=== PATIENT | male | born 1990 | race Two or more races ===

== ENCOUNTER → 2016-12-08 | Outpatient (CLI) | payer OTHER ==
[~2016-12-08] MED LIST: CLAR10CA3 PO; MUCI3TAB PO
== END ==
LOC: M WUC 12:34
PROVIDERS: ATTEND Physician Assistant
DX: R30.0 Dysuria (principal); Z72.51 High risk heterosexual behavior

== ENCOUNTER 2019-10-11 10:57 | Inpatient (IN) | payer MEDICAID, OTHER ==
[~2019-10-11] VITALS: Ht 175.3 cm; Wt 59.5 kg
[2019-10-11 13:04] LABS: HEMATOCRIT 45.3 % (42.0-52.0); HEMOGLOBIN 15.5 g/dl (13.5-17.5); MEAN CORPUSCULAR HEMOGLOBIN 27.8 pg (27.0-33.0); MEAN CORPUSCULAR HGB CONC 34.2 g/dl (32.0-36.5); MEAN CORPUSCULAR VOLUME 81.2 fl (80.0-96.0); PLATELET COUNT, AUTOMATED 297 10^3/uL (150-450); RED BLOOD COUNT 5.58 10^6/uL (4.30-6.10); WHITE BLOOD COUNT 18.9 10^3/uL (4.0-10.0)
[2019-10-11 13:31] LABS: AMPHETAMINES LEVEL URINE NEGATIVE (NEGATIVE); BARBITURATES URINE NEGATIVE (NEGATIVE); BENZODIAZEPINES URINE NEGATIVE (NEGATIVE); CANNABINOIDS URINE POSITIVE (NEGATIVE); COCAINE METABOLITE URINE NEGATIVE (NEGATIVE); METHADONE URINE NEGATIVE (NEGATIVE); OPIATES URINE NEGATIVE (NEGATIVE); PHENCYCLIDINE URINE NEGATIVE (NEGATIVE)
[2019-10-11 13:43] LABS: ALT/SGPT 38 U/L (12-78); BILIRUBIN,DIRECT 0.2 MG/DL (0.0-0.2); BILIRUBIN,TOTAL 0.5 MG/DL (0.2-1.0); BLOOD UREA NITROGEN 13 MG/DL (7-18); CALCIUM LEVEL 10.1 MG/DL (8.5-10.1); CARBON DIOXIDE LEVEL 27 MEQ/L (21-32); CHLORIDE LEVEL 108 MEQ/L (98-107); CREATININE FOR GFR 1.15 MG/DL (0.70-1.30); ETHYL ALCOHOL (ETHANOL) 0.003 % (0.000-0.010); GLOMERULAR FILTRATION RATE > 60.0 (>60); GLUCOSE, FASTING 83 MG/DL (70-100); POTASSIUM SERUM 3.7 MEQ/L (3.5-5.1); SALICYLATE LEVEL 5.2 MG/DL (5.0-30.0); SODIUM LEVEL 143 MEQ/L (136-145); TOTAL PROTEIN 8.7 GM/DL (6.4-8.2)
[2019-10-11 13:44] LABS: ACETAMINOPHEN LEVEL < 2.0 UG/ML (10.0-30.0)
[2019-10-11] MEDS ORDERED: ACETAMINOPHEN TAB 650MG DOSE (2X325MG) PO ONE (14:00)
--- NOTE | 2019-10-11 16:40 | REP ---
RIGHT RIB SERIES: Four views right ribs performed. No acute fracture or bone lesion is seen. An accompanying PA view of the chest demonstrates no acute infiltrate, pneumothorax, or pleural effusion. Heart and mediastinum are within normal limits. IMPRESSION: Negative right rib series. Electronically Signed by Efrain Fuchs MD 10/12/2019 01:15 P
[2019-10-11] MEDS ORDERED: ACETAMINOPHEN TAB 650MG DOSE (2X325MG) PO PRN (19:15)
[2019-10-11] MEDS ORDERED: MAALOX 30 ML SUSP *UDC PO PRN (19:15)
[2019-10-11] MEDS ORDERED: MOM 30ML SUSPENSION UDC PO PRN (19:15)
[2019-10-11] MEDS ORDERED: traZODone 50 MG TAB PO PRN (19:15)
[2019-10-12 00:47] VITALS: BP 140/87
[2019-10-12 06:48] VITALS: BP 131/75
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
[2019-10-12 10:17] LABS: HEPATITIS B SURFACE ANTIBODY POSITIVE (POSITIVE); HEPATITIS B SURFACE ANTIGEN NEGATIVE (NEGATIVE); HEPATITIS C VIRUS ABY INDEX 0.2 INDEX (<0.8); HIV 1&2 SCREEN CENTAUR NEGATIVE (NEGATIVE)
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
[2019-10-12 16:09] VITALS: BP 115/70
[2019-10-13 06:25] VITALS: BP 120/72
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
[2019-10-13 16:24] VITALS: BP 117/64
[2019-10-14 06:26] VITALS: BP 134/58
[2019-10-14 16:13] VITALS: BP 135/80
[2019-10-15 06:32] VITALS: BP 119/59
--- NOTE | 2019-10-15 09:30 | MHIPN ---
DATE: 10/14/2019 VITAL SIGNS: Blood pressure 155/80, pulse 69, temperature 98.5. This is a followup assessment, made by a telemedicine video. He is seen the presence of staff. CHIEF COMPLAINT: Feels good. SUBJECTIVE: Seen for followup. Indicates feels better, in that he feels rested. He says his appetite has been good. No cravings for cannabis, he denies any. Says plans to see a counselor for him staying away from cannabis. MENTAL STATUS EXAMINATION: He is cooperative. No agitation. No psychomotor retardation. Coherent. Affect displays a fair range. Denies any thoughts of harming himself or anyone else. I see no evidence of any psychosis. Cognition grossly intact. Judgment and insight improved overall. ASSESSMENT: 1. Adjustment disorder with anxiety and depression. 2. Cannabis use disorder. Clinically improved. PLAN: Continue current care, observation. He wishes to remain off antidepressants and I think that is quite acceptable. Should such improvement continue, anticipate discharge soon. Further recommendations will be made depending on the clinical picture.
[2019-10-15 16:00] VITALS: BP_SYST 118; BP_SYST 170; BP_DIAS 75; BP_DIAS 76
--- NOTE | 2019-10-15 20:39 | MHIPNPDOC ---
[facility] Progress Note Progress Note DATE OF SERVICE: 10/15/19 Gunnar now 29 years of age has been on the inpatient psychiatric unit since his admission on October 10 He was seen today for medical psychotherapy Patient was seen for a medical psychotherapy session in which the patient's treatment plan was reviewed, mental status exam performed, vital signs reviewed, current medical conditions reviewed, and treatment goals were reviewed This visit was performed as a telehealth visit utilizing an interactive a/v telecommunications system or telephone that permitted real time communication between myself and the patient--permission/consent from patient/guardian was obtained MENTAL STATUS EXAM Level of consciousness--patient was alert and oriented to time place person Appearance-normal posture, normal dress, no prominent physical abnormalities, alert, cooperative Behavior--like to good, no psychomotor agitation or retardation, no abnormal movements, no tremor Speech--normal rate and rhythm--normal volume Mood--euthymic Affect--normal range and consistent with mood--stable Thought processes--logical and linear , goal directed and coherent--no thought blocking or flight of ideas, no loose associations, no tangential thinking, no word salad, no thought blocking, no circumstantiality Thought content--no ideas of reference no auditory or visual hallucinations, no delusional thinking, no thoughts of derealization or depersonalization, no obsessive thinking, no expressed phobias, Cognition--patient was alert and able to focus-sustained appropriate mental attention-memory immediate and short-term memory intact-abstract thinking pr esent, Insight---fair Judgment or the ability to anticipate consequences of behavior intact Patient denied any suicidal ideation or impulses Patient denied any homicidal impulses or ideation He is making slow with a progress since being admitted and his mental status is now considerably improved and is back to normal and/or his baseline Aftercare has been arranged and he will be ready to be discharged tomorrow Currently he is on no psychotropic medication Vital Signs Vital Signs Date Time Temp Pulse Resp B/P (MAP) Pulse Ox O2 Delivery O2 Flow Rate FiO2 10/15/19 16:00 97.6 59 16 118/76 (90) 10/15/19 06:32 98 Room Air Current Medications Current Medications Medications (Trade) Dose Ordered Sig/Olivier Route PRN Reason Start Time Stop Time Status Last Admin Dose Admin Acetaminophen (Tylenol Tab) 650 mg Q6HP PRN PO HEADACHE or DISCOMFORT 10/11/19 19:15 Al Hydrox/Mg Hydrox/Simethicone (Mylanta) 30 ml Q4HP PRN PO HEARTBURN/INDIGESTION 10/11/19 19:15 Home Med (Med Rec Complete!) ASDIRECTED XX 10/11/19 18:30 10/11/19 18:28 DC Magnesium Hydroxide (Milk Of Magnesia) 30 ml DAILYPRN PRN PO CONSTIPATION 10/11/19 19:15 Trazodone HCl (Desyrel) 50 mg QHSP PRN PO INSOMNIA 10/11/19 19:15 Allergies Coded Allergies: Sulfa (Sulfonamide Antibiotics) (Verified Allergy, Intermediate, 10/11/19) Zi Devlin MD Oct 15, 2019 20:39
[2019-10-16 06:27] VITALS: BP 124/70
--- NOTE | 2019-10-16 13:54 | MHDSPDOC ---
[facility] Discharge Summary Discharge Summary Discharge summary Date of admission October 11, 2019 Date of discharge October 16, 2019 Quirino is a 29-year-old male who was admitted and treated on our inpatient adult psychiatric unit for a period of 5 days Final diagnosis unspecified depressive disorder Secondary final diagnosis was that of cannabis abuse No complications to his stay with regard to medical conditions Patient's clinical condition improved during the course of the stay and no psychotropic medications were employed Final mental status MENTAL STATUS EXAM Level of consciousness--patient was alert and oriented to time place person Appearance-normal posture, normal dress, no prominent physical abnormalities, alert, cooperative Behavior--like to good, no psychomotor agitation or retardation, no abnormal movements, no tremor Speech--normal rate and rhythm--normal volume Mood--euthymic Affect--normal range and consistent with mood--stable Thought processes--logical and linear , goal directed and coherent--no thought blocking or flight of ideas, no loose associations, no tangential thinking, no word salad, no thought blocking, no circumstantiality Thought content--no ideas of reference no auditory or visual hallucinations, no delusional thinking, no thoughts of derealization or depersonalization, no obsessive thinking, no expressed phobias, Cognition--patient was alert and able to focus-sustained appropriate mental attention-memory immediate and short-term memory intact-abstract thinking present, Insight---fair Judgment or the ability to anticipate consequences of behavior intact Patient denied any suicidal ideation or impulses Patient denied any homicidal impulses or ideation Aftercare was arranged Medications were reconciled A safety contract was constructed Emergency procedures were explained to the patient Patient was referred to the behavioral outpatient treatment here at [facility] Patient was also referred to substance abuse outpatient treatment again at [facility] 30 minutes was spent in the discharge process and with the patient Vital Signs/I&Os Vital Signs Date Time Temp Pulse Resp B/P (MAP) Pulse Ox O2 Delivery O2 Flow Rate FiO2 10/16/19 06:27 98.9 50 14 124/70 (88) 99 Room Air Allergies Coded Allergies: Sulfa (Sulfonamide Antibiotics) (Verified Allergy, Intermediate, 10/11/19) Zi Devlin MD Oct 16, 2019 13:54
== END 2019-10-16 16:02 | disposition home or self-care (01) | DRG 754 ==
LOC: M ED 10:57 → M ED INP 19:02 → M PSY 10-12 00:15
PROVIDERS: ADMIT Psychiatry & Neurology Psychiatry; ATTEND Psychiatry & Neurology Addiction Medicine
DX: F32.9 Major depressive disorder, single episode, unspecified (principal); R45.851 Suicidal ideations; F12.10 Cannabis abuse, uncomplicated

== ENCOUNTER 2020-01-12 22:17 | Inpatient (IN) | payer OTHER ==
[~2020-01-12] VITALS: Ht 175.3 cm; Wt 61.4 kg
[2020-01-12 23:10] LABS: HEMATOCRIT 39.9 % (42.0-52.0); HEMOGLOBIN 13.9 g/dl (13.5-17.5); MEAN CORPUSCULAR HEMOGLOBIN 28.3 pg (27.0-33.0); MEAN CORPUSCULAR HGB CONC 34.8 g/dl (32.0-36.5); MEAN CORPUSCULAR VOLUME 81.3 fl (80.0-96.0); PLATELET COUNT, AUTOMATED 255 10^3/uL (150-450); RED BLOOD COUNT 4.91 10^6/uL (4.30-6.10); WHITE BLOOD COUNT 11.9 10^3/uL (4.0-10.0)
[2020-01-12 23:39] LABS: AMPHETAMINES LEVEL URINE NEGATIVE (NEGATIVE); BARBITURATES URINE NEGATIVE (NEGATIVE); BENZODIAZEPINES URINE NEGATIVE (NEGATIVE); CANNABINOIDS URINE POSITIVE (NEGATIVE); COCAINE METABOLITE URINE NEGATIVE (NEGATIVE); METHADONE URINE NEGATIVE (NEGATIVE); OPIATES URINE NEGATIVE (NEGATIVE); PHENCYCLIDINE URINE NEGATIVE (NEGATIVE)
[2020-01-13 00:18] LABS: ACETAMINOPHEN LEVEL < 2.0 UG/ML (10.0-30.0); ALBUMIN 4.6 GM/DL (3.2-5.2); ALT/SGPT 22 U/L (12-78); BILIRUBIN,DIRECT 0.1 MG/DL (0.0-0.2); BILIRUBIN,TOTAL 0.4 MG/DL (0.2-1.0); BLOOD UREA NITROGEN 14 MG/DL (7-18); CALCIUM LEVEL 9.8 MG/DL (8.5-10.1); CARBON DIOXIDE LEVEL 26 MEQ/L (21-32); CHLORIDE LEVEL 108 MEQ/L (98-107); CREATININE FOR GFR 1.24 MG/DL (0.70-1.30); ETHYL ALCOHOL (ETHANOL) < 0.003 % (0.000-0.010); GLOMERULAR FILTRATION RATE > 60.0 (>60); GLUCOSE, FASTING 126 MG/DL (70-100); POTASSIUM SERUM 3.6 MEQ/L (3.5-5.1); SALICYLATE LEVEL 2.9 MG/DL (5.0-30.0); SODIUM LEVEL 140 MEQ/L (136-145); TOTAL PROTEIN 7.7 GM/DL (6.4-8.2)
[2020-01-13 00:40] LABS: CHLAMYDIA DNA AMPLIFICATION POSITIVE (NEGATIVE); GC DNA AMPLIFICATION NEGATIVE (NEGATIVE)
[2020-01-13] MEDS ORDERED: AZITHROMYCIN 250MG TABLET PO ONE ×2 (02:15→18:30)
[2020-01-13] MEDS ORDERED: OLANZapine ORAL DISINTEGRATING TAB 5MG PO PRN (02:30)
[2020-01-13] MEDS ORDERED: MAALOX 30 ML SUSP *UDC PO PRN (02:30)
[2020-01-13] MEDS ORDERED: MOM 30ML SUSPENSION UDC PO PRN (02:30)
[2020-01-13] MEDS ORDERED: traZODone 50 MG TAB PO PRN (02:30)
[2020-01-13] MEDS ORDERED: ACETAMINOPHEN TAB 650MG DOSE (2X325MG) PO PRN (02:30)
[2020-01-13] MEDS ORDERED: ONDANSETRON 4 MG ORAL DISINTEGRATING TAB PO ONE (03:00)
[2020-01-13 04:35] VITALS: BP 129/68
[2020-01-13 17:55] VITALS: BP 119/82
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
[2020-01-14 06:46] VITALS: BP 132/58
[2020-01-14 06:52] LABS: HEMATOCRIT 37.4 % (42.0-52.0); HEMOGLOBIN 13.1 g/dl (13.5-17.5); MEAN CORPUSCULAR HEMOGLOBIN 28.6 pg (27.0-33.0); MEAN CORPUSCULAR VOLUME 81.7 fl (80.0-96.0); PLATELET COUNT, AUTOMATED 227 10^3/uL (150-450); RED BLOOD COUNT 4.58 10^6/uL (4.30-6.10); WHITE BLOOD COUNT 6.6 10^3/uL (4.0-10.0)
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
[2020-01-14] MEDS ORDERED: AZITHROMYCIN 250MG TABLET PO ONE (10:15)
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
== END 2020-01-14 13:30 | disposition home or self-care (01) | DRG 755 ==
LOC: M ED 22:17 → M ED INP 01-13 02:22 → M PSY 01-13 04:16
PROVIDERS: ADMIT Psychiatry & Neurology Psychiatry; ATTEND Psychiatry & Neurology Addiction Medicine
DX: F43.24 Adjustment disorder with disturbance of conduct (principal); A56.8 Sexually transmitted chlamydial infection of other sites; F12.90 Cannabis use, unspecified, uncomplicated; Z88.1 Allergy status to other antibiotic agents; Z88.2 Allergy status to sulfonamides

== ENCOUNTER 2020-05-09 10:20 | Emergency (ER) | payer OTHER ==
[~2020-05-09] VITALS: Ht 175.3 cm; Wt 59.1 kg
--- OUTSIDE RECORDS SUMMARY | 2020-05-09 10:24 | CCD ---
Author Author [facility] Organization [facility] Address Unknown Phone Unavailable Support Name Relationship Address Phone JULIETA DEE Next Of Kin [address] [place] [address] ALBERT Next Of Kin [address] [place] [address] UE Next Of Kin Unknown Unavailable ST Next Of Kin Unknown Unavailable [place] [address] CHELLE DEE Next Of Kin [address] [place] [address] Re-disclosure Warning The records that you are about to access may contain information from federally-assisted alcohol or drug abuse programs. If such information is present, then the following federally mandated warning applies: This information has been disclosed to you from records protected by federal confidentiality rules (42 CFR part 2). The federal rules prohibit you from making any further disclosure of this information unless further disclosure is expressly permitted by the written consent of the person to whom it pertains or as otherwise permitted by 42 CFR part 2. A general authorization for the release of medical or other information is NOT sufficient for this purpose. The Federal rules restrict any use of the information to criminally investigate or prosecute any alcohol or drug abuse patient.The records that you are about to access may contain highly sensitive health information, the redisclosure of which is protected by Article 27-F of the [place] State Public Health law. If you continue you may have access to information: Regarding HIV / AIDS; Provided by facilities licensed or operated by the [facility] Office of Mental Health; or Provided by the [facility] Office for People With Developmental Disabilities. If such information is present, then the following [facility] mandated warning applies: This information has been disclosed to you from confidential records which are protected by state law. State law prohibits you from making any further disclosure of this information without the specific written consent of the person to whom it pertains, or as otherwise permitted by law. Any unauthorized further disclosure in violation of state law may result in a fine or nursing home sentence or both. A general authorization for the release of medical or other information is NOT sufficient authorization for further disc losure. Family History Family Member Name Family Member Gender Family Member Status Date o f Status Description Data Source(s) Unknown Male Problem MEDENT ([facility] Unknown Unknown Problem MEDENT ([facility], [facility]) Insurance Providers Payer name Policy type / Coverage type Policy ID Covered libertarian ID Covered libertarian's relationship to fonseca Policy Fonseca Plan Information [facility] [id number] SP [id number] [facility] [id number] SP [id number] [facility] O [id number] S [id number] [facility] [id number] SP [id number] [facility] [id number] SP [id number] [place] [id number] SP [id number] GEHA-ASA [id number] MO2 [id number] Geha-Asa Commercial [id number] Family Dependent [id number] Geha-Asa Commercial [id number] Family Dependent [id number] Asageha [employer] Commercial [id number] Family Dependent [id number] GEHA-ASA [id number] MO2 [id number] Geha-Asa Commercial Self PGBA [facility] [id number] MO2 [id number] Prime Commercial Family Dependent
[2020-05-09 10:46] LABS: HEMATOCRIT 39.7 % (42.0-52.0); HEMOGLOBIN 13.5 g/dl (13.5-17.5); MEAN CORPUSCULAR VOLUME 82.2 fl (80.0-96.0); PLATELET COUNT, AUTOMATED 243 10^3/uL (150-450); RED BLOOD COUNT 4.83 10^6/uL (4.30-6.10); WHITE BLOOD COUNT 5.6 10^3/uL (4.0-10.0)
--- OUTSIDE RECORDS SUMMARY | 2020-05-09 11:21 | CCD ---
Author Author [facility] Organization [facility] Address Unknown Phone Unavailable Support Name Relationship Address Phone JULIETA DEE Next Of Kin [address] [place] [address] ALBERT Next Of Kin [address] [place] [address] UE Next Of Kin Unknown Unavailable ST Next Of Kin Unknown Unavailable [place] [address] CHELLE DEE Next Of Kin [address] [place] [address] Re-disclosure Warning The records that you are [...] is protected by Article 27-F of the [place] State Public Health law. If you continue you may have access to information: Regarding HIV / AIDS; Provided by facilities licensed or operated by the [facility] Office of Mental Health; or Provided by the [facility] Office for People With Developmental Disabilities. If such information is present, then the following [facility] mandated warning applies: This information has been [...] [facility] Unknown Unknown Problem MEDENT ([facility], [facility]) Insurance Providers Payer name Policy type / Coverage type Policy ID Covered green party ID Covered green party's relationship to fonseca Policy Fonseca Plan Information [facility] [id number] SP [id number] [facility] [id number] SP [id number] [facility] O [id number] S [id number] [facility]O [id number] SP [id number] [facility] [id number] SP [id number] [place] [id number] SP [id number] GEHA-ASA [id number] MO2 [id number] Geha-Asa Commercial [id number] Family Dependent [id number] Geha-Asa Commercial [id number] Family Dependent [id number] Asageha [employer] Commercial [id number] Family Dependent [id number] GEHA-ASA [id number] MO2 [id number] Geha-Asa Commercial Self PGBA [facility] [id number] MO2 [id number] Prime Commercial Family Dependent
[2020-05-09 11:22] LABS: ACETAMINOPHEN LEVEL < 2.0 UG/ML (10.0-30.0); ALBUMIN 4.4 GM/DL (3.2-5.2); ALT/SGPT 60 U/L (12-78); BILIRUBIN,DIRECT 0.2 MG/DL (0.0-0.2); BILIRUBIN,TOTAL 0.6 MG/DL (0.2-1.0); BLOOD UREA NITROGEN 13 MG/DL (7-18); CALCIUM LEVEL 9.3 MG/DL (8.5-10.1); CARBON DIOXIDE LEVEL 27 MEQ/L (21-32); CHLORIDE LEVEL 106 MEQ/L (98-107); CREATININE FOR GFR 1.18 MG/DL (0.70-1.30); ETHYL ALCOHOL (ETHANOL) < 0.003 % (0.000-0.010); GLOMERULAR FILTRATION RATE > 60.0 (>60); GLUCOSE, FASTING 106 MG/DL (70-100); POTASSIUM SERUM 3.2 MEQ/L (3.5-5.1); SODIUM LEVEL 143 MEQ/L (136-145); TOTAL PROTEIN 7.3 GM/DL (6.4-8.2)
[2020-05-09 17:03] LABS: AMPHETAMINES LEVEL URINE NEGATIVE (NEGATIVE); BARBITURATES URINE NEGATIVE (NEGATIVE); BENZODIAZEPINES URINE NEGATIVE (NEGATIVE); CANNABINOIDS URINE POSITIVE (NEGATIVE); COCAINE METABOLITE URINE NEGATIVE (NEGATIVE); METHADONE URINE NEGATIVE (NEGATIVE); OPIATES URINE NEGATIVE (NEGATIVE); PHENCYCLIDINE URINE NEGATIVE (NEGATIVE)
[2020-05-09 18:18] VITALS: BP 135/81
== END 2020-05-09 18:20 | disposition home or self-care (01) ==
LOC: M ED 10:20
DX: F43.20 Adjustment disorder, unspecified (principal); Z88.1 Allergy status to other antibiotic agents; Z88.2 Allergy status to sulfonamides; F12.20 Cannabis dependence, uncomplicated
CPT/HCPCS: 36415; 80048; 80076; 80307; 84443; 85027; 99284; G0480

== ENCOUNTER 2020-06-15 09:21 | Emergency (ER) | payer OTHER ==
[2020-06-15 11:25] VITALS: BP 114/58
== END 2020-06-15 11:28 | disposition home or self-care (01) ==
LOC: M ED 09:21
DX: F43.20 Adjustment disorder, unspecified (principal); Z88.1 Allergy status to other antibiotic agents; Z88.2 Allergy status to sulfonamides; F17.210 Nicotine dependence, cigarettes, uncomplicated; F12.20 Cannabis dependence, uncomplicated

== ENCOUNTER → 2020-08-11 | Outpatient (CLI) | payer OTHER ==
--- NOTE | 2020-08-11 13:15 | REP ---
INDICATION: DISC-LIKE SX, RULE IN/OUT PATHOLOGY, STANDING VIEWS ONLY. COMPARISON: None. TECHNIQUE: Four AP and lateral views. FINDINGS: There is no compression fracture. There is normal alignment and cervical lordosis. There is no prevertebral soft tissue swelling. The disc spaces are well preserved. IMPRESSION: Negative cervical spine series. <Electronically signed by Efrain Fuchs > 08/11/20 [id number]
--- NOTE | 2020-08-11 13:17 | REP ---
INDICATION: DISC-LIKE SX, RULE IN/OUT PATHOLOGY, STANDING VIEWS ONLY. COMPARISON: None. TECHNIQUE: Three AP and lateral views thoracic spine. FINDINGS: There is no compression fracture. There is normal thoracic kyphosis and alignment. Disc spaces are well preserved without significant arthritic change. The posterior elements are intact. IMPRESSION: Negative thoracic spine series. <Electronically signed by Efrain Fuchs > 08/11/20 [id number]
--- NOTE | 2020-08-11 13:20 | REP ---
INDICATION: DISC-LIKE SX, RULE IN/OUT PATHOLOGY, STANDING VIEWS ONLY. COMPARISON: None. TECHNIQUE: AP and lateral lumbar spine. FINDINGS: There is no compression fracture. There is normal lumbar lordosis with no evidence of spondylolysis or spondylolisthesis. Disc spaces are well preserved. The posterior elements are intact. IMPRESSION: Negative lumbar spine series. <Electronically signed by Efrain Fuchs > 08/11/20 [id number]
== END ==
LOC: M WUC 10:55
PROVIDERS: ATTEND Chiropractor
DX: M54.42 Lumbago with sciatica, left side (principal); M99.03 Segmental and somatic dysfunction of lumbar region; M54.13 Radiculopathy, cervicothoracic region; M99.01 Segmental and somatic dysfunction of cervical region

== ENCOUNTER 2020-11-02 20:33 | Emergency (ER) | payer OTHER ==
[~2020-11-02] VITALS: Ht 177.8 cm; Wt 67.3 kg
[2020-11-02 20:35] VITALS: BP 126/64
== END 2020-11-02 21:52 | disposition left against medical advice (07) ==
LOC: M ED 20:33
DX: Z53.21 Procedure and treatment not carried out due to patient leaving prior to being seen by health care provider (principal)

== ENCOUNTER → 2020-11-22 | Outpatient (CLI) | payer OTHER ==
--- NOTE | 2020-11-22 20:16 | REPVR ---
PROCEDURE INFORMATION: Exam: MR Lumbar Spine Without Contrast Exam date and time: 11/22/2020 3:12 PM Age: 30 years old Clinical indication: Condition or disease; Disc displacement; Lumbar sacral region; Additional info: Intervertebral disc displacement TECHNIQUE: Imaging protocol: Multiplanar magnetic resonance images of the lumbar spine without intravenous contrast. COMPARISON: SPINE LUMBOSACRAL PARTIAL 08/11/2020 11:31 AM FINDINGS: Vertebral body heights are maintained. No abnormal marrow signal. No cord compression. No abnormal cord signal. Conus medullaris terminates at the T12 level. Disc space heights are normal. No significant areas of canal or foraminal narrowing. Paravertebral soft tissues are unremarkable. IMPRESSION: No acute findings in the lumbar spine. Electronically signed by: Carlos Alberto Woodward On 11/22/2020 20:16:11 PM
== END ==
LOC: M RAD 13:45
PROVIDERS: ATTEND Family Medicine
DX: M51.26 Other intervertebral disc displacement, lumbar region (principal)

== ENCOUNTER → 2022-12-18 | Outpatient (CLI) | payer OTHER ==
[2022-12-18 12:20] LABS: HEPATITIS B SURFACE ANTIBODY POSITIVE (POSITIVE)
[2022-12-18 12:46] LABS: HIV 1&2 SCREEN NEGATIVE (NEGATIVE)
[2022-12-18 12:53] LABS: HEPATITIS B CORE ANTIBODY IGM NEGATIVE (NEGATIVE); HEPATITIS C VIRUS ABY INDEX 0.12 INDEX (<0.8)
[2022-12-18 14:50] LABS: GC DNA AMPLIFICATION NEGATIVE (NEGATIVE)
== END ==
LOC: M LAB 11:19
PROVIDERS: ATTEND Family Medicine
DX: Z72.51 High risk heterosexual behavior (principal)

== ENCOUNTER 2023-03-08 17:17 | Emergency (ER) | payer OTHER, SELFPAY ==
[~2023-03-08] VITALS: Ht 175.3 cm; Wt 63.6 kg
[2023-03-08 17:18] VITALS: BP 138/82; TEMP 98.4; O2SAT 98
== END 2023-03-08 21:35 | disposition home or self-care (01) ==
LOC: M ED 17:17
DX: S99.922A Unspecified injury of left foot, initial encounter (principal); S59.901A Unspecified injury of right elbow, initial encounter; V18.2XXA Unspecified pedal cyclist injured in noncollision transport accident in nontraffic accident, initial encounter; Y92.410 Unspecified street and highway as the place of occurrence of the external cause; Z88.2 Allergy status to sulfonamides; Z88.1 Allergy status to other antibiotic agents